=== PATIENT | male | born 1980 | race African-American/Black ===

== ENCOUNTER 2017-02-02 15:10 | Emergency (ER) | payer MEDICAID ==
[~2017-02-02] VITALS: Ht 182.9 cm; Wt 102.1 kg
--- NOTE | 2017-02-02 15:12 | NUR ---
pt bibra to er bed 16. here for anxiety s/p meth use. exhibiting bizzare behavior. pt is verbally responsive. on monitor. tachy otherwise stable vitals. awaiting md garcia.
--- NOTE | 2017-02-02 15:24 | NUR ---
dr ramey at bedside for eval.
[2017-02-02] MEDS ORDERED: IV NS 0.9% 1,000 ML BAG IV ONE (15:30)
[2017-02-02] MEDS ORDERED: LORAZEPAM INJ 2 MG/ML VIAL IV ONE ×2 (15:30→17:00)
[2017-02-02 15:38] LABS: BASOPHILS % (AUTO) 0.7 % (0.0-2.0); EOSINOPHILS # (AUTO) 0.1 /CMM (0.0-0.7); HEMATOCRIT 38 % (39-51); HEMOGLOBIN 12.7 g/dL (13.5-17.5); LYMPHOCYTES # (AUTO) 0.9 /CMM (0.8-4.8); LYMPHOCYTES % (AUTO) 15.3 % (20.0-44.0); MEAN CORPUSCULAR HEMOGLOBIN 32 PG (26.0-33.0); MEAN CORPUSCULAR HGB CONC 34 g/dl (31.0-36.0); MEAN CORPUSCULAR VOLUME 94 fL (80-96); MONOCYTES # (AUTO) 0.5 /CMM (0.1-1.30); NEUTROPHILS # (AUTO) 4.2 /CMM (1.8-8.9); PLATELET COUNT (AUTO) 215 /CMM (150-450); RDW COEFFICIENT OF VARIATION 11.2 (11.5-15.0); RED BLOOD CELL COUNT(AUTO) 4.01 MIL/uL (4.5-6.0); WHITE BLOOD COUNT (AUTO) 5.7 K/uL (4.3-11.0)
[2017-02-02 15:47] LABS: CALCIUM, SERUM 9.7 mg/dL (8.5-10.1); CARBON DIOXIDE 25 mmol/L (21-32); CHLORIDE 98 mmol/L (98-107); CREATININE 1.1 mg/dL (0.6-1.3); GLUCOSE 100 mg/dL (74-106); POTASSIUM 3.5 mmol/L (3.5-5.1); SODIUM SERUM 134 mmol/L (136-145); UREA NITROGEN, BLOOD 14 mg/dL (7-18)
[2017-02-02] MEDS ORDERED: LORAZEPAM INJ 2 MG/ML VIAL ONE ×2 (15:52→16:50)
[2017-02-02 15:55] LABS: TROPONIN I < 0.017 ng/mL (0.00-0.056)
[2017-02-02 16:01] LABS: ALBUMIN 4.3 g/dL (3.4-5.0); ALCOHOL, BLOOD < 3 mg/dL (0-0); ALKALINE PHOSPHATASE 72 U/L (46-116); ASPARTATE AMINOTRANSFERASE 53 U/L (15-37); BILIRUBIN,DIRECT 0.4 mg/dL (0.0-0.2); BILIRUBIN,TOTAL 1.6 mg/dL (0.2-1.0); TOTAL PROTEIN, SERUM 7.3 g/dL (6.4-8.2)
[2017-02-02 16:03] LABS: ACETAMINOPHEN 0 ug/ml (10-30); SALICYLATE 0.4 mg/dL (2.8-20.0)
--- NOTE | 2017-02-02 16:57 | NUR ---
pt is still tachy. dr ramey aware. medicated as ordered.
[2017-02-02 16:59] LABS: ALANINE AMINOTRANSFERASE 64 U/L (12-78)
[2017-02-02] MEDS ORDERED: OLANZAPINE 10 MG VIAL IM ONE ×2 (17:48→18:00)
[2017-02-02 17:51] LABS: APPEARANCE,URINE CLEAR (CLEAR); BILIRUBIN,URINE 1+ (NEGATIVE); BLOOD, URINE NEGATIVE Ery/uL (NEGATIVE); COLOR,URINE YELLOW (YELLOW); KETONES,URINE 1+ (NEGATIVE); LEUKOCYTE ESTERASE ,URINE NEGATIVE (NEGATIVE); NITRITE, URINE NEGATIVE (NEGATIVE); PROTEIN,URINE NEGATIVE (NEGATIVE); UGLUCOSE NEGATIVE (NEGATIVE)
[2017-02-02 18:59] LABS: BACTERIA,URINE Few /HPF (None Seen); RBC,URINE 0-2 /HPF (0-2); SQUAMOUS EPITHELIAL CELL,UR Few /HPF (None Seen); WBC,URINE 0-2 /HPF (0-3)
--- NOTE | 2017-02-02 22:52 | NUR ---
PT SLEEPING IN BED. ONN MONITOR W/ STABLE VITALS NOTED. WILL CONT TO MONITOR.
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
--- NOTE | 2017-02-03 01:10 | NUR ---
PT SLEEPING IN BED IN NO APPARENT DISTRESS, PT ON MONITOR, VSS MD MADE AWARE WILL CONTINUE TO MONITOR.
--- NOTE | 2017-02-03 02:31 | NUR ---
RECEIVED REPORT FROM KENNY HODGES FOR BALJIT. PT RESTING EASILY AROUSED. VSS.
--- NOTE | 2017-02-03 07:00 | NUR ---
Patient is resting comfortably in bed with eyes closed. Easily aroused. VSS
--- NOTE | 2017-02-03 08:00 | NUR ---
Patient is resting comfortably in bed with eyes closed. Easily aroused. VSS
--- NOTE | 2017-02-03 08:26 | NUR ---
JOON CONCERT MANAGER CALLED [phone]
--- NOTE | 2017-02-03 11:17 | NUR ---
[id number] [address] Tovar
--- NOTE | 2017-02-03 11:27 | NUR ---
[facility]
[2017-02-03 11:28] VITALS: BP 124/80
--- NOTE | 2017-02-03 11:28 | NUR ---
[facility] ETA [id number]
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
== END 2017-02-03 11:43 | disposition short-term general hospital (02) ==
LOC: ER 15:11
DX: F15.10 Other stimulant abuse, uncomplicated (principal); F32.9 Major depressive disorder, single episode, unspecified; F41.9 Anxiety disorder, unspecified
CPT/HCPCS: 36415; 80048; 80076; 80305; 80329; 81001; 84484; 85025; 93005; 96372; 96374; 96376; 99285; A4606; G0480 ×2; J2060 ×2; J3490; J7030; Z7610; 81000-TC